=== PATIENT | female | born 1955 ===

== ENCOUNTER → 2017-04-03 | Outpatient (CLI) | payer OTHER | LOC: FIMAGING 16:30 | PROVIDERS: ATTEND Internal Medicine | DX: R10.13 Epigastric pain (principal) ==

== ENCOUNTER → 2018-01-07 | Outpatient (CLI) | payer OTHER | LOC: FIMAGING 10:27 | PROVIDERS: ATTEND Internal Medicine | DX: K11.9 Disease of salivary gland, unspecified (principal) ==

== ENCOUNTER → 2018-05-07 | Outpatient (CLI) | payer OTHER | LOC: FIMAGING 10:17 | PROVIDERS: ATTEND Internal Medicine | DX: R92.8 Other abnormal and inconclusive findings on diagnostic imaging of breast (principal) ==

== ENCOUNTER 2018-08-10 10:28 | Inpatient (IN) | payer OTHER ==
[2018-08-10] MEDS ORDERED: fentaNYL 100 MCG/2 ML INJ IVP ONE (11:03)
[2018-08-10] MEDS ORDERED: ONDANSETRON 4 MG/2 ML VIAL IVP ONE ×2 (11:03→12:37)
[2018-08-10] MEDS ORDERED: NS 1,000 ML IV ONE ×2 (11:03→12:37)
--- NOTE | 2018-08-10 11:04 | EDPHY ---
General - History Smoking Status: Never smoked Time Seen by Provider: 08/10/18 10:45 Narrative: CHIEF COMPLAINT: Abdominal pain, blood in stool HISTORY OF PRESENT ILLNESS: Patient presents by private vehicle with complaints of abdominal pain and blood in her stool. She says she has had intermittent bouts of abdominal pain over the past several months, and possibly up to a year. She has been evaluated by primary care physician with a CT scan that did not reveal an etiology other than ovarian cyst. She says since she has had increasing lower abdominal pain with blood in her stools several times daily. She knows that is bright red blood only with bowel movements. The pain is in lower abdomen and radiates through to the back. It is described as a pressure-like pain. Constant duration. Worse with palpation and walking. Minimal improvement rest. She has no nausea or vomiting. She does occasionally have some epigastric discomfort and cramping of the stomach. She has no fever chills. No bleeding from any other site. 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 She has no lightheaded or dizziness. No syncope. No other associated complaints or modifying factors. REVIEW OF SYSTEMS: 10 systems were reviewed and negative with the exception of the elements mentioned in the history of present illness. PCP: Dr. Angelica Chino SPECIALISTS: Payroll Officer, Pbx Repairer, [facility] PAST MEDICAL HISTORY: PE, ovarian cysts, dysfunctional uterine bleeding PAST SURGICAL HISTORY: Uterine ablation, Oxford filter, bilateral TKA SOCIAL HISTORY: Never smoker. Lives independently with her spouse. FAMILY HISTORY: Noncontributory EXAMINATION: Vitals: Triage VS reviewed General Appearance: Alert, no distress. Well appearing. Head: normocephalic, atraumatic Eyes: Pupils equal and round, no conjunctival pallor or injection ENT, Mouth: Mucous membranes moist. No bleeding from the gums. Airway patent. Neck: Normal inspection, supple, non-tender Respiratory: Lungs are clear to auscultation Cardiovascular: Regular rate and rhythm. No murmur. Good signs of perfusion distally Gastrointestinal: Abdomen is soft and nondistended. There is tenderness in the lower abdomen symmetrically. No guarding. No tympany rigidity. Bowel sounds present. No CVA tenderness. Back: non-tender, no bony abnormalities Neurological: A&O, nonfocal, normal gait Skin: Warm and dry, no rash no petechiae or purpura. Extremities: Nontender, no pedal edema Psychiatric: Mood and affect normal DIFFERENTIAL DIAGNOSES: Including but not limited to diverticulosis, diverticulitis, ovarian cyst, ovarian torsion, hemorrhagic ovarian cyst MDM: 11:00 a.m. Lower abdominal pain since with bright red blood in her stools. Her abdominal exam does reveal moderate tenderness in the lower abdomen without point tenderness at anyone location. There is no CVA tenderness. No guarding. No tympany rigidity. Do feel she warrants imaging given her location of pain and duration of symptoms. Laboratory studies are pending. IV has been established. I have ordered pain medication and IV fluid. She is in no acute distress. She does not meet SIRS criteria. 11:06 a.m. Point of care creatinine is 0.6, and I have notified tool rental technician. 12:00 p.m. Laboratory studies reveal appropriate INR and CBC is pending. Notified by radiologist. CT scan reveals no acute abnormality. There are incidental findings as documented. No evidence of ovarian cyst or any free fluid in the pelvis. Possible clavicle thickening of the lower esophagus. 12:15 p.m. Case discussed with Dr. Ambrosio, and he will evaluate the patient. 12:30 p.m. Patient re-evaluated after attending examination. She still feeling nauseated and has some mild lower abdominal pain. We discussed the CT scan does not explain her symptoms and that she is at risk for further bleeding on Coumadin. I do feel she warrants admission given her ongoing symptoms and GI bleed on Coumadin. Both the patient's spouse are comfortable this plan. 12:35 p.m. Notified by RN. The patient seems to have had a possible vagal episode with heart rate down to the 40s that quickly improved resolved, but she was symptomatic for this. We will obtain an EKG and administer IV fluids. She will be placed on a cardiac monitor technician. 12:40 p.m. EKG obtained reveals sinus bradycardia she remains on a cardiac monitor technician. 1:00 p.m. Case discussed with hospitalist SUPERVISION: Patient was evaluated and examined in conjunction with my secondary supervising physician as documented. We have both examined the patient. CONSULTATION: Hospitalist admission (Matt Bryan) Medical Decision Making: PHYSICIAN DOCUMENTATION: The patient was evaluated and managed by the Physician System Designer and myself. I have reviewed the chart and agree with the findings and plan of care as documented. In addition, I examined the patient myself at 1215. History confirmed as abdominal pain mostly lower now, had some rectal bleeding later last week which has improved but isn't totally gone. Physical findings as follows: Lower abdominal tenderness to palpation right greater than left. 12-lead EKG interpreted by me; official reading is in computer system. My interpretation is sinus bradycardia rate 43. Admission for continued abdominal pain with nausea, symptoms of lower GI bleeding. I am the secondary supervising physician. (Freddie Ambrosio) - Diagnostics Imaging Results: Imaging Impressions Abdomen CT 08/10/18 11:03 Impression: 1. No evidence of abdominopelvic inflammatory mass or ascites. 2. Equivocal thickening of a nondilated distal esophagus without definite mass visualized. This is nonspecific and may represent an inflammatory condition such as reflux, clinical correlation is recommended. 3. Incidental nonobstructing left nephrolithiasis. 4. Incidental right lower lobe pulmonary nodule, no prior studies available for comparison. In a low-risk patient according to Fleischner criteria no routine follow-up is recommended. 5. Incomplete characterization of incidental right lobe hepatic lesion. Recommend outpatient follow-up with three-phase CT or MRI with hepatic lesion protocol. 6. Retrievable style IVC filter in place. If caval filtration no longer indicated, recommend referral to interventional radiology outpatient clinic to evaluate potential retrieval. 7. Fibroid uterus. These findings were discussed with Matt Bryan by telephone at 12:06 PM on . - Objective Vital Signs: Initial Vital Signs Temperature (C) 36.5 C 08/10/18 10:34 Heart Rate 71 08/10/18 10:34 Respiratory Rate 16 08/10/18 10:34 Blood Pressure 194/91 H 08/10/18 10:34 O2 Sat (%) 96 08/10/18 10:34 O2 Delivery Mode Room Air Allergies/Adverse Reactions: morphine Allergy (Verified 08/10/18 13:34) Vomiting/Hives Sulfa (Sulfonamide Antibiotics) Allergy (Verified 08/10/18 13:34) Unknown Home Medications: Medication Instructions Recorded Cyanocobalamin [Vitamin B12 (*)] 1,000 mcg PO DAILY 08/10/18 Furosemide [Lasix 20 MG (*)] 20 mg PO DAILY PRN 08/10/18 Herbals/Supplements -Info Only 1 ea PO DAILY 08/10/18 Multivitamins [Multivitamin (*)] 1 each PO DAILY 08/10/18 Pyridoxine HCl [Vitamin B-6 100 mg 100 mg PO DAILY 08/10/18 (*)] Warfarin Sodium [Coumadin 5MG (*)] 5 mg PO MOTH@21 08/10/18 Warfarin Sodium [Coumadin 5MG (*)] 10 mg PO SUTUWEFRSA@21 08/10/18 Laboratory Results: Laboratory Results 08/10/18 12:35 08/10/18 10:45 08/10/18 08/10/18 08/10/18 12:35 12:35 10:55 WBC 6.28 10^3/uL 10^3/uL (3.80-9.50) RBC 5.08 10^6/uL 10^6/uL (4.18-5.33) Hgb 12.3 g/dL L g/dL (12.6-16.3) POC Hgb 15.0 gm/dL gm/dL (12.6-16.3) Hct 39.2 % % (38.0-47.0) POC Hct 44 % % (38-47) MCV 77.2 fL L fL (81.5-99.8) MCH 24.2 pg L pg (27.9-34.1) MCHC 31.4 g/dL L g/dL (32.4-36.7) RDW 15.2 % % (11.5-15.2) Plt Count 189 10^3/uL 10^3/uL (150-400) MPV 9.7 fL fL (8.7-11.7) Neut % (Auto) 70.4 % % (39.3-74.2) Lymph % (Auto) 17.5 % % (15.0-45.0) [place] % (Auto) 6.8 % % (4.5-13.0) Eos % (Auto) 2.1 % % (0.6-7.6) Baso % (Auto) 1.4 % % (0.3-1.7) Nucleat RBC Rel Count 0.0 % % (0.0-0.2) Absolute Neuts (auto) 4.42 10^3/uL 10^3/uL (1.70-6.50) Absolute Lymphs (auto) 1.10 10^3/uL 10^3/uL (1.00-3.00) Absolute Monos (auto) 0.43 10^3/uL 10^3/uL (0.30-0.80) Absolute Eos (auto) 0.13 10^3/uL 10^3/uL (0.03-0.40) Absolute Basos (auto) 0.09 10^3/uL 10^3/uL (0.02-0.10) Absolute Nucleated RBC 0.00 10^3/uL 10^3/uL (0-0.01) Immature Gran % 1.8 % H % (0.0-1.1) Seg Neutrophils % Cancelled Band Neutrophils % Cancelled Lymphocytes % Cancelled Monocytes % Cancelled Eosinophils % Cancelled Basophils % Cancelled Metamyelocytes % Cancelled Myelocytes % Cancelled Promyelocytes % Cancelled Blast Cells % Cancelled Megakaryocytes % Cancelled Immature Gran # 0.11 10^3/uL H 10^3/uL (0.00-0.10) Absolute Seg Neuts Cancelled Absolute Band Neuts Cancelled Absolute Lymphocytes Cancelled Absolute Monocytes Cancelled Absolute Eosinophils Cancelled Absolute Basophils Cancelled Absolute Metamyelocyte Cancelled Absolute Myelocytes Cancelled Absolute Promyelocytes Cancelled Absolute Plasma Cells Cancelled Nucleated RBCs Cancelled Differential Comment Cancelled RBC/WBC/PLT Morphology Cancelled Hypersegmented Neuts Cancelled Atypical Lymphocytes Cancelled Absolute Blast Cells Cancelled Plasma Cells % Cancelled Smudge Cells Cancelled Toxic Granulation Cancelled Toxic Vacuolation Cancelled Dohle Bodies Cancelled Cristino Rods Cancelled Platelet Estimate Cancelled Clumped Platelets Cancelled Large Platelets Cancelled Giant Platelets Cancelled Bizarre Platelets Cancelled Polychromasia Cancelled Hypochromasia Cancelled Basophilic Stippling Cancelled Microcytic Cells Cancelled Spherocytes Cancelled Pappenheimer Bodies Cancelled Sickle Cells Cancelled Target Cells Cancelled Tear Drop Cells Cancelled Oval Macrocytes Cancelled Stomatocytes Cancelled Martins-Maunie Bodies Cancelled Echinocytes Cancelled Elliptocytes Cancelled Acanthocytes (Spur) Cancelled Rouleaux Cancelled Keratocytes Cancelled Schistocytes Cancelled PT INR APTT POC Sodium 142 mEq/L mEq/L (135-145) Sodium POC Potassium 3.6 mEq/L mEq/L (3.3-5.0) Potassium POC Chloride 106 mEq/L mEq/L (97-110) Chloride Carbon Dioxide Anion Gap POC BUN 12 mg/dL mg/dL (7-23) BUN Creatinine POC Creatinine 0.6 mg/dL mg/dL (0.6-1.0) Estimated GFR Glucose POC Glucose 107 mg/dL H mg/dL (70-100) Calcium Total Bilirubin Conjugated Bilirubin Unconjugated Bilirubin AST ALT Alkaline Phosphatase Troponin I Total Protein Albumin Lipase Urine Color PALE YELLOW Urine Appearance CLEAR Urine pH 7.0 (5.0-7.5) Ur Specific [place] 1.029 (1.002-1.030) Urine Protein NEGATIVE (NEGATIVE) Urine Ketones NEGATIVE (NEGATIVE) Urine Blood NEGATIVE (NEGATIVE) Urine Nitrate NEGATIVE (NEGATIVE) Urine Bilirubin NEGATIVE (NEGATIVE) Urine Urobilinogen NEGATIVE EU EU (0.2-1.0) Ur Leukocyte Esterase NEGATIVE (NEGATIVE) Urine RBC 1-3 /hpf /hpf (0-3) Urine WBC 1-3 /hpf /hpf (0-3) Ur Epithelial Cells TRACE /lpf /lpf (NONE-1+) Urine Glucose NEGATIVE (NEGATIVE) Cold Agglutinins Cancelled 08/10/18 08/10/18 08/10/18 10:49 10:45 10:45 WBC RBC Hgb POC Hgb Hct POC Hct MCV MCH MCHC RDW Plt Count MPV Neut % (Auto) Lymph % (Auto) [place] % (Auto) Eos % (Auto) Baso % (Auto) Nucleat RBC Rel Count Absolute Neuts (auto) Absolute Lymphs (auto) Absolute Monos (auto) Absolute Eos (auto) Absolute Basos (auto) Absolute Nucleated RBC Immature Gran % Seg Neutrophils % Band Neutrophils % Lymphocytes % Monocytes % Eosinophils % Basophils % Metamyelocytes % Myelocytes % Promyelocytes % Blast Cells % Megakaryocytes % Immature Gran # Absolute Seg Neuts Absolute Band Neuts Absolute Lymphocytes Absolute Monocytes Absolute Eosinophils Absolute Basophils Absolute Metamyelocyte Absolute Myelocytes Absolute Promyelocytes Absolute Plasma Cells Nucleated RBCs Differential Comment RBC/WBC/PLT Morphology Hypersegmented Neuts Atypical Lymphocytes Absolute Blast Cells Plasma Cells % Smudge Cells Toxic Granulation Toxic Vacuolation Dohle Bodies Cristino Rods Platelet Estimate Clumped Platelets Large Platelets Giant Platelets Bizarre Platelets Polychromasia Hypochromasia Basophilic Stippling Microcytic Cells Spherocytes Pappenheimer Bodies Sickle Cells Target Cells Tear Drop Cells Oval Macrocytes Stomatocytes Martins-Maunie Bodies Echinocytes Elliptocytes Acanthocytes (Spur) Rouleaux Keratocytes Schistocytes PT 30.2 SEC H SEC (12.0-15.0) INR 2.90 H (0.83-1.16) APTT 62.4 SEC H SEC (23.0-38.0) POC Sodium Sodium 142 mEq/L mEq/L (135-145) POC Potassium Potassium 4.0 mEq/L mEq/L (3.3-5.0) POC Chloride Chloride 109 mEq/L mEq/L (97-110) Carbon Dioxide 22 mEq/l mEq/l (22-31) Anion Gap 11 mEq/L mEq/L (6-14) POC BUN BUN 13 mg/dL mg/dL (7-23) Creatinine 0.7 mg/dL mg/dL (0.6-1.0) POC Creatinine Estimated GFR > 60 Glucose 106 mg/dL H mg/dL (70-100) POC Glucose Calcium 9.5 mg/dL mg/dL (8.5-10.4) Total Bilirubin 0.7 mg/dL mg/dL (0.1-1.4) Conjugated Bilirubin 0.5 mg/dL mg/dL (0.0-0.5) Unconjugated Bilirubin 0.2 mg/dL mg/dL (0.0-1.1) AST 67 IU/L H IU/L (14-46) ALT 37 IU/L IU/L (9-52) Alkaline Phosphatase 166 IU/L H IU/L (38-126) Troponin I < 0.012 ng/mL ng/mL (0.000-0.034) Total Protein 7.9 g/dL g/dL (6.3-8.2) Albumin 4.7 g/dL g/dL (3.5-5.0) Lipase 283 IU/L IU/L (23-300) Urine Color Urine Appearance Urine pH Ur Specific [place] Urine Protein Urine Ketones Urine Blood Urine Nitrate Urine Bilirubin Urine Urobilinogen Ur Leukocyte Esterase Urine RBC Urine WBC Ur Epithelial Cells Urine Glucose Cold Agglutinins 08/10/18 10:45 WBC REJ RBC REJ Hgb REJ POC Hgb Hct REJ POC Hct MCV REJ MCH REJ MCHC REJ RDW REJ Plt Count REJ MPV REJ Neut % (Auto) REJ Lymph % (Auto) REJ [place]lan % (Auto) REJ Eos % (Auto) REJ Baso % (Auto) REJ Nucleat RBC Rel Count REJ Absolute Neuts (auto) REJ Absolute Lymphs (auto) REJ Absolute Monos (auto) REJ Absolute Eos (auto) REJ Absolute Basos (auto) REJ Absolute Nucleated RBC REJ Immature Gran % REJ Seg Neutrophils % Band Neutrophils % Lymphocytes % Monocytes % Eosinophils % Basophils % Metamyelocytes % Myelocytes % Promyelocytes % Blast Cells % Megakaryocytes % Immature Gran # REJ Absolute Seg Neuts Absolute Band Neuts Absolute Lymphocytes Absolute Monocytes Absolute Eosinophils Absolute Basophils Absolute Metamyelocyte Absolute Myelocytes Absolute Promyelocytes Absolute Plasma Cells Nucleated RBCs Differential Comment RBC/WBC/PLT Morphology Hypersegmented Neuts Atypical Lymphocytes Absolute Blast Cells Plasma Cells % Smudge Cells Toxic Granulation Toxic Vacuolation Dohle Bodies Cristino Rods Platelet Estimate Clumped Platelets Large Platelets Giant Platelets Bizarre Platelets Polychromasia Hypochromasia Basophilic Stippling Microcytic Cells Spherocytes Pappenheimer Bodies Sickle Cells Target Cells Tear Drop Cells Oval Macrocytes Stomatocytes Martins-Maunie Bodies Echinocytes Elliptocytes Acanthocytes (Spur) Rouleaux Keratocytes Schistocytes PT INR APTT POC Sodium Sodium POC Potassium Potassium POC Chloride Chloride Carbon Dioxide Anion Gap POC BUN BUN Creatinine POC Creatinine Estimated GFR Glucose POC Glucose Calcium Total Bilirubin Conjugated Bilirubin Unconjugated Bilirubin AST ALT Alkaline Phosphatase Troponin I Total Protein Albumin Lipase Urine Color Urine Appearance Urine pH Ur Specific [place] Urine Protein Urine Ketones Urine Blood Urine Nitrate Urine Bilirubin Urine Urobilinogen Ur Leukocyte Esterase Urine RBC Urine WBC Ur Epithelial Cells Urine Glucose Cold Agglutinins Medications Given: Discontinued Medications Fentanyl (Sublimaze) 100 mcg IVP EDNOW ONE Stop: 08/10/18 11:04 Last Admin: 08/10/18 11:17 Dose: 100 mcg Sodium Chloride (Ns) 1,000 mls @ 0 mls/hr IV EDNOW ONE; Wide Open PRN Reason: Protocol Stop: 08/10/18 11:04 Last Admin: 08/10/18 11:18 Dose: 1,000 mls Sodium Chloride (Ns) 1,000 mls @ 0 mls/hr IV EDNOW ONE; Wide Open PRN Reason: Protocol Stop: 08/10/18 12:38 Last Admin: 08/10/18 12:41 Dose: 1,000 mls Ondansetron HCl (Zofran) 4 mg IVP EDNOW ONE Stop: 08/10/18 11:04 Last Admin: 08/10/18 11:17 Dose: 4 mg Ondansetron HCl (Zofran) 4 mg IVP EDNOW ONE Stop: 08/10/18 12:38 Last Admin: 08/10/18 15:01 Dose: Not Given Point of Care Test Results: Chemistry 08/10/18 10:55 POC Sodium 142 mEq/L mEq/L (135-145) POC Potassium 3.6 mEq/L mEq/L (3.3-5.0) POC Chloride 106 mEq/L mEq/L (97-110) POC BUN 12 mg/dL mg/dL (7-23) POC Creatinine 0.6 mg/dL mg/dL (0.6-1.0) POC Glucose 107 mg/dL H mg/dL (70-100) ISTAT H&H 08/10/18 10:55 POC Hgb 15.0 gm/dL gm/dL (12.6-16.3) POC Hct 44 % % (38-47) Departure - Departure Disposition: [facility] Inpatient Acute Clinical Impression: Bradycardia, Lower GI bleed Abdominal pain Qualifiers: Abdominal location: lower abdomen, unspecified Qualified Code(s): R10.30 - Lower abdominal pain, unspecified Condition: Good
[2018-08-10 11:24] LABS: INR 2.9 (0.83-1.16); PROTIME(PATIENT) 30.2 SEC (12.0-15.0)
--- NOTE | 2018-08-10 13:11 | CPEKG ---
Test Reason : OPEN Blood Pressure : / mmHG Vent. Rate : 043 BPM Atrial Rate : 042 BPM P-R Int : 184 ms QRS Dur : 107 ms QT Int : 518 ms P-R-T Axes : 052 -23 013 degrees QTc Int : 439 ms Sinus bradycardia Left ventricular hypertrophy Confirmed by Freddie Ambrosio ([id number]) on 08/10/2018 1:11:31 PM Referred By: Confirmed By:Freddie Ambrosio
[2018-08-10] MEDS ORDERED: HYDROmorphONE/DILAUDID 1 MG/ML INJ IVP PRN (13:56)
[2018-08-10] MEDS ORDERED: HYDROCODONE/APAP 5/325 TAB PO PRN (13:56)
[2018-08-10] MEDS ORDERED: ONDANSETRON DISINTEGRATING 4 MG TAB PO PRN (13:56)
[2018-08-10] MEDS ORDERED: ONDANSETRON 4 MG/2 ML VIAL IVP PRN (13:56)
--- NOTE | 2018-08-10 14:06 | PDGENHP ---
History and Physical - History of Present Illness History Information - Allergies/Home Medication List Allergies/Adverse Reactions: morphine Allergy (Verified 08/10/18 13:34) Vomiting/Hives Sulfa (Sulfonamide Antibiotics) Allergy (Verified 08/10/18 13:34) Unknown Home Medications: Cyanocobalamin [Vitamin B12 (*)] 1,000 mcg PO DAILY 08/10/18 [Last Taken Unknown ] Furosemide [Lasix 20 MG (*)] 20 mg PO DAILY PRN 08/10/18 [Last Taken 08/10/18] Herbals/Supplements -Info Only 1 ea PO DAILY 08/10/18 [Last Taken Unknown] Multivitamins [Multivitamin (*)] 1 each PO DAILY 08/10/18 [Last Taken Unknown] Pyridoxine HCl [Vitamin B-6 100 mg (*)] 100 mg PO DAILY 08/10/18 [Last Taken Unknown] Warfarin Sodium [Coumadin 5MG (*)] 5 mg PO MOTH@08/10/18 [Last Taken 08/06/18 ] Warfarin Sodium [Coumadin 5MG (*)] 10 mg PO SUTUWEFRSA@08/10/18 [Last Taken 08/09/18] I have personally reviewed and updated: family history, medical history, social history, surgical history - Past Medical History Additional medical history: H pylori. h/o b/l PE. abnormal uterine bleeding - s/p ablation. ovarian cysts - Surgical History Additional surgical history: b/l TKA. uterine ablation - Family History Positive for: non-pertinent - Social History Smoking Status: Never smoked Additional social history: , lives independently Review of Systems Review of Systems: ROS: 10pt was reviewed & negative except for what was stated in HPI & below Physical Exam Physical Exam: Temp Pulse Resp BP Pulse Ox 36.5 C 46 L 16 160/50 H 94 08/10/18 10:34 08/10/18 12:34 08/10/18 12:34 08/10/18 12:34 08/10/18 12:34 Constitutional: no apparent distress Eyes: PERRL Ears, Nose, Mouth, Throat: moist mucous membranes Cardiovascular: regular rate and rhythym Respiratory: no respiratory distress, clear to auscultation Gastrointestinal: normoactive bowel sounds, other (soft, minimal distention, mild diffuse ttp, no r/r/g or peritoneal signs) Skin: warm Musculoskeletal: full muscle strength Neurologic: AAOx3 Psychiatric: interacting appropriately Lab Data & Imaging Review 08/10/18 12:35 08/10/18 10:45 WBC REJ 08/10/18 10:45 RBC REJ 08/10/18 10:45 Hgb REJ 08/10/18 10:45 POC Hgb 15.0 gm/dL (12.6-16.3) 08/10/18 10:55 Hct REJ 08/10/18 10:45 POC Hct 44 % (38-47) 08/10/18 10:55 MCV REJ 08/10/18 10:45 MCH REJ 08/10/18 10:45 MCHC REJ 08/10/18 10:45 RDW REJ 08/10/18 10:45 Plt Count REJ 08/10/18 10:45 MPV REJ 08/10/18 10:45 Neut % (Auto) REJ 08/10/18 10:45 Lymph % (Auto) REJ 08/10/18 10:45 [place] % (Auto) REJ 08/10/18 10:45 Eos % (Auto) REJ 08/10/18 10:45 Baso % (Auto) REJ 08/10/18 10:45 Nucleat RBC Rel Count REJ 08/10/18 10:45 Absolute Neuts (auto) REJ 08/10/18 10:45 Absolute Lymphs (auto) REJ 08/10/18 10:45 Absolute Monos (auto) REJ 08/10/18 10:45 Absolute Eos (auto) REJ 08/10/18 10:45 Absolute Basos (auto) REJ 08/10/18 10:45 Absolute Nucleated RBC REJ 08/10/18 10:45 Immature Gran % REJ 08/10/18 10:45 Immature Gran # REJ 08/10/18 10:45 PT 30.2 SEC (12.0-15.0) H 08/10/18 10:49 INR 2.90 (0.83-1.16) H 08/10/18 10:49 APTT 62.4 SEC (23.0-38.0) H 08/10/18 10:49 POC Sodium 142 mEq/L (135-145) 08/10/18 10:55 Sodium 142 mEq/L (135-145) 08/10/18 10:45 POC Potassium 3.6 mEq/L (3.3-5.0) 08/10/18 10:55 Potassium 4.0 mEq/L (3.3-5.0) 08/10/18 10:45 POC Chloride 106 mEq/L (97-110) 08/10/18 10:55 Chloride 109 mEq/L (97-110) 08/10/18 10:45 Carbon Dioxide 22 mEq/l (22-31) 08/10/18 10:45 Anion Gap 11 mEq/L (6-14) 08/10/18 10:45 POC BUN 12 mg/dL (7-23) 08/10/18 10:55 BUN 13 mg/dL (7-23) 08/10/18 10:45 Creatinine 0.7 mg/dL (0.6-1.0) 08/10/18 10:45 POC Creatinine 0.6 mg/dL (0.6-1.0) 08/10/18 10:55 Estimated GFR > 60 08/10/18 10:45 Glucose 106 mg/dL (70-100) H 08/10/18 10:45 POC Glucose 107 mg/dL (70-100) H 08/10/18 10:55 Calcium 9.5 mg/dL (8.5-10.4) 08/10/18 10:45 Total Bilirubin 0.7 mg/dL (0.1-1.4) 08/10/18 10:45 Conjugated Bilirubin 0.5 mg/dL (0.0-0.5) 08/10/18 10:45 Unconjugated Bilirubin 0.2 mg/dL (0.0-1.1) 08/10/18 10:45 AST 67 IU/L (14-46) H 08/10/18 10:45 ALT 37 IU/L (9-52) 08/10/18 10:45 Alkaline Phosphatase 166 IU/L (38-126) H 08/10/18 10:45 POC Troponin I 0.01 ng/mL (0.00-0.08) 08/10/18 13:06 Troponin I < 0.012 ng/mL (0.000-0.034) 08/10/18 10:45 Total Protein 7.9 g/dL (6.3-8.2) 08/10/18 10:45 Albumin 4.7 g/dL (3.5-5.0) 08/10/18 10:45 Lipase 283 IU/L (23-300) 08/10/18 10:45 Urine Color PALE YELLOW 08/10/18 12:35 Urine Appearance CLEAR 08/10/18 12:35 Urine pH 7.0 (5.0-7.5) 08/10/18 12:35 Ur Specific [place] 1.029 (1.002-1.030) 08/10/18 12:35 Urine Protein NEGATIVE (NEGATIVE) 08/10/18 12:35 Urine Ketones NEGATIVE (NEGATIVE) 08/10/18 12:35 Urine Blood NEGATIVE (NEGATIVE) 08/10/18 12:35 Urine Nitrate NEGATIVE (NEGATIVE) 08/10/18 12:35 Urine Bilirubin NEGATIVE (NEGATIVE) 08/10/18 12:35 Urine Urobilinogen NEGATIVE EU (0.2-1.0) 08/10/18 12:35 Ur Leukocyte Esterase NEGATIVE (NEGATIVE) 08/10/18 12:35 Urine RBC 1-3 /hpf (0-3) 08/10/18 12:35 Urine WBC 1-3 /hpf (0-3) 08/10/18 12:35 Ur Epithelial Cells TRACE /lpf (NONE-1+) 08/10/18 12:35 Urine Glucose NEGATIVE (NEGATIVE) 08/10/18 12:35 Assessment & Plan Assessment: Abdominal pain with bloody stool - Consider infectious etiology with pain and loose, bloody stools. Note h/o h pylori. Hemodynamically stable, no e/o active bleeding. -send GI pathogen panel -trend h&h -IV PPI -clear liquids for now -GI consulted, Dr. Mckeon to see pt -defer INR reversal at this time. If GI path panel neg and has ongoing bleeding, will reverse INR. Could give FFP if needs emergent reversal overnight. H/O PE - on coumadin, INR 2.9 on arrival. Note presence of IVC filter -hold coumadin for now, but as above, defer INR reversal unless more active bleeding or neg GI PCR and scope becomes indicated Bradycardia - Suspect vagal event in ED, now resolved. No AV varun agents -monitor on telemetry Full code Dispo - obs
[2018-08-10 14:14] LABS: PLATELET COUNT 189 10^3/uL (150-400)
[2018-08-10] MEDS ORDERED: NS W/ 20 KCl/L 1,000 ML IV SCH (14:15)
[2018-08-10] MEDS: PANTOPRAZOLE SODIUM 40 MG VIAL IVP SCH ×2 (17:20→21:37)
[2018-08-10] MEDS: ACETAMINOPHEN 325 MG TAB PO PRN (21:34)
[2018-08-11 02:16] LABS: INR 3.39 (0.83-1.16)
[2018-08-11] MEDS ORDERED: PEG 3350/NA SULF,BICARB,CL/KCL (GAVILYTE-G) 4000 ML BTL PO ONE (09:07)
[2018-08-11] MEDS: PANTOPRAZOLE SODIUM 40 MG VIAL IVP SCH ×2 (09:56→22:45)
--- NOTE | 2018-08-11 11:27 | HOSPPROG ---
Hospitalist Progress Note Assessment/Plan: Abdominal pain with bloody stool - Consider infectious etiology with pain and loose, bloody stools. Note h/o h pylori. Hemodynamically stable, no e/o active bleeding. h&h stable overnight without recurrent bloody stools -send GI pathogen panel, not sent bc no more stools -EGD/c-scope today per GI recs H/O PE - on coumadin, INR 2.9 on arrival, now 3.39, likey rising due to little oral intake. Note presence of IVC filter, query need for ongoing anticoagulation. -holding coumadin for now, defer INR reversal, discussed with Dr. Mckeon Bradycardia - Suspect vagal event in ED, now resolved. No AV varun agents. Resolved. -monitor on telemetry Full code Dispo - change to inpt for ongoing GI evaluation Subjective: Pt doing better. No diarrhea or bloody stools since admission. No stools at all since admission. No N/V. No fevers/chills. Still has intermittent abdominal discomfort, which seems mostly epigastric. Objective: Vital Signs Temp Pulse Resp BP Pulse Ox 36.8 C 54 L 14 168/94 H 97 08/11/18 11:19 08/11/18 11:19 08/11/18 11:19 08/11/18 11:19 08/11/18 11:19 Laboratory Results 08/11/18 09:47 08/10/18 08/11/18 08/12/18 05:59 05:59 05:59 Intake Total 1780 Balance 1780 PT 34.0 SEC (12.0-15.0) H 08/11/18 02:00 INR 3.39 (0.83-1.16) H 08/11/18 02:00 - Physical Exam Constitutional: no apparent distress Eyes: PERRL Ears, Nose, Mouth, Throat: moist mucous membranes Cardiovascular: regular rate and rhythym Respiratory: no respiratory distress, clear to auscultation Gastrointestinal: normoactive bowel sounds, soft, non-tender abdomen Skin: warm Musculoskeletal: full muscle strength Neurologic: AAOx3 Psychiatric: interacting appropriately ICD10 Worksheet Patient Problems: Problems Problem Status Onset Abdominal pain Acute Bradycardia Acute Lower GI bleed Acute
[2018-08-11] MEDS: ACETAMINOPHEN 325 MG TAB PO PRN (12:01)
--- NOTE | 2018-08-11 14:02 | PDMN ---
Medical Necessity Medical necessity: Change to inpt as of 08/11/18 @ 11:29. Pt meets inpt criteria per MD order and MCG M-05, Abdominal Pain, Undiagnosed. 62 y/o admitted w/abdominal pain and bloody stool. Upgraded to inpt status for persistent abd pain, nausea, further workup needed, GI consult, EGD/c-scope today. Bradycardia ,HR 40's-50's. IVF, IV PPI, IV antiemetics, pain control. Anticipate>2MN for ongoing eval/management of above.
--- NOTE | 2018-08-11 14:49 | ASMTCMCOM ---
CM Note CM Note Notes: Pt is a 62 y/o female admitted for lower GI bleed, and bradycardia. Pt will most likely d/c independent when medically stable. No therapies ordered at this time. CM available for changes. Plan: Independent Date Signed: 08/11/2018 02:48 PM Electronically Signed By:HERMINIO Castillo
[2018-08-11] MEDS ORDERED: LR 1,000 ML IV ONE (16:09)
--- NOTE | 2018-08-11 17:07 | PDANEPAE ---
ANE History of Present Illness egd/colon ANE Past Medical History - Cardiovascular History Hx Hypertension: No Hx Arrhythmias: No Hx Chest Pain: No Hx Coronary Artery / Peripheral Vascular Disease: No Hx CHF / Valvular Disease: No Hx Palpitations: No Cardiovascular History Comment: linda filter in place - Pulmonary History Hx COPD: No Hx Asthma/Reactive Airway Disease: No Hx Recent Upper Respiratory Infection: No Hx Oxygen in Use at Home: No Hx Sleep Apnea: Yes Sleep Apnea Screening Result - Last Documented: Positive - Neurologic History Hx Cerebrovascular Accident: No Hx Seizures: No Hx Dementia: No - Endocrine History Hx Diabetes: No Hypothyroid: No Hyperthyroid: No Obesity: no - Renal History Hx Renal Disorders: No - Liver History Hx Hepatic Disorders: No - Chronic Pain History Chronic Pain: No ANE Review of Systems Review of Systems: - Exercise capacity Exercise capacity: >=4 METS ANE Patient History - Allergies Allergies/Adverse Reactions: morphine Allergy (Verified 08/10/18 13:34) Vomiting/Hives Sulfa (Sulfonamide Antibiotics) Allergy (Verified 08/10/18 13:34) Unknown - Home Medications Home Medications: Cyanocobalamin [Vitamin B12 (*)] 1,000 mcg PO DAILY 08/10/18 [Last Taken Unknown ] Furosemide [Lasix 20 MG (*)] 20 mg PO DAILY PRN 08/10/18 [Last Taken 08/10/18] Herbals/Supplements -Info Only 1 ea PO DAILY 08/10/18 [Last Taken Unknown] Multivitamins [Multivitamin (*)] 1 each PO DAILY 08/10/18 [Last Taken Unknown] Pyridoxine HCl [Vitamin B-6 100 mg (*)] 100 mg PO DAILY 08/10/18 [Last Taken Unknown] Warfarin Sodium [Coumadin 5MG (*)] 5 mg PO MOTH@21 08/10/18 [Last Taken 08/06/18 ] Warfarin Sodium [Coumadin 5MG (*)] 10 mg PO SUTUWEFRSA@08/10/18 [Last Taken 08/09/18] - NPO status NPO Since - Liquids (Date): 08/11/18 NPO Since - Liquids (Time): 14:00 NPO Since - Solids (Date): 08/09/18 NPO Since - Solids (Time): 20:00 - Smoking Hx Smoking Status: Never smoked ANE Labs/Vital Signs - Labs Result Diagrams: 08/11/18 09:47 08/10/18 10:45 - Vital Signs Blood Pressure: 172/81 Heart Rate: 47 Respiratory Rate: 19 O2 Sat (%): 94 Height: 172.72 cm Weight: 84.822 kg ANE Physical Exam - Airway Mallampati Score: Class 2 Mouth exam: normal dental/mouth exam - Pulmonary Pulmonary: no respiratory distress - Cardiovascular Cardiovascular: regular rate and rhythym - ASA Status ASA Status: II ANE Anesthesia Plan Anesthesia Plan: GA with mask, MAC
[2018-08-11] MEDS ORDERED: MIDAZOLAM 2 MG/2 ML VIAL ONE (17:09)
[2018-08-11] MEDS ORDERED: fentaNYL 100 MCG/2 ML INJ ONE (17:09)
[2018-08-11] MEDS ORDERED: LIDOCAINE 2% 5 ML SDV ONE (17:09)
[2018-08-11] MEDS ORDERED: PROPOFOL/EMULSION 500 MG/50 ML BOTTLE IV ONE (17:09)
[2018-08-11] MEDS ORDERED: LR 500 ML IV PRN (17:17)
[2018-08-11] MEDS ORDERED: fentaNYL 100 MCG/2 ML INJ IVP PRN (17:17)
[2018-08-11] MEDS ORDERED: ONDANSETRON 4 MG/2 ML VIAL IVP PRN (17:17)
[2018-08-11] MEDS ORDERED: ALBUTEROL 3 ML DEYVIAL IH PRN (17:17)
[2018-08-11] MEDS ORDERED: NALOXONE HCL 0.4 MG/ML INJ IVP PRN (17:17)
--- NOTE | 2018-08-11 17:37 | GIREPORT ---
[facility] Surgical Services - Endoscopy Department Patient Name: Sara Foote Procedure Date: 08/11/2018 5:00 PM Patient Type: Inpatient Attending MD/ ER Physician: Elio Mckeon MD Procedure: Upper GI endoscopy Indications: Epigastric abdominal pain, Hematochezia, Diarrhea, Nausea Providers: Elio Mckeon MD Medicines: General Anesthesia Complications: No immediate complications. Description of Procedure: After obtaining informed consent, the endoscope was passed under direct vision. Throughout the procedure, the patient's blood pressure, pulse, and oxygen saturations were monitored continuously. The Endoscope was intro duced through the mouth, and advanced to the second part of duodenum. The [facility] er GI endoscopy was accomplished without difficulty. The patient tolerated th e procedure well. Findings: The examined esophagus was normal. The entire examined stomach was normal. The examined duodenum was normal. Estimated Blood Loss: Estimated blood loss: none. Post Op Diagnosis: - Normal esophagus. - Normal stomach. - Normal examined duodenum. - No specimens collected. Recommendation: - Perform a colonoscopy today. Attending Participation: I personally performed the entire procedure. Elio Mckeon MD Elio Mckeon MD 08/11/2018 5:37:08 PM This report has been signed electronicallyJohalley Mckeon MD Number of Addenda: 0 Note Initiated On: 08/11/2018 5:00 PM [email or web address]
--- NOTE | 2018-08-11 18:01 | GIREPORT ---
Replaced By [facility] Surgical Services - Endoscopy Department Patient Name: Sara Foote Procedure Date: 08/11/2018 5:03 PM Patient Type: Inpatient Attending MD/ ER Physician: Elio Mckeon MD Procedure: Colonoscopy Indications: Generalized abdominal pain, Clinically significant diarrhea of [place] origin, Hematochezia Providers: Elio Mckeon MD Medicines: General Anesthesia Complications: No immediate complications. Description of Procedure: After obtaining informed consent, the scope was passed under direct vis ion. Throughout the procedure, the patient's blood pressure, pulse, and oxyg en saturations were monitored continuously. The Loaner scope was introduce d through the anus and advanced to the terminal ileum. The colonoscopy wa s performed without difficulty. The patient tolerated the procedure well. The quality of the bowel preparation was excellent. Findings: The terminal ileum appeared normal. The colon (entire examined portion) appeared normal. Non-bleeding internal hemorrhoids were found during retroflexion. The hemorrhoids were Grade II (internal hemorrhoids that prolapse but reduc e spontaneously). The perianal and digital rectal examinations were normal. Estimated Blood Loss: Estimated blood loss: none. Post Op Diagnosis: - The examined portion of the ileum was normal. - The entire examined colon is normal. - Non-bleeding internal hemorrhoids. - No specimens collected. Recommendation: - Return patient to [facility] for ongoing care. - Resume regular diet today. - Repeat colonoscopy in 10 years for screening purposes. - The findings and recommendations were discussed with the patient. Attending Participation: I personally performed the entire procedure. Elio Mckeon MD Elio Mckeon MD 08/11/2018 6:01:03 PM This report has been signed electronicallyElio Mckeon MD Number of Addenda: 0 Note Initiated On: 08/11/2018 5:03 PM Total Procedure Duration Time 0 hours 19 minutes 14 seconds [email or web address]
--- NOTE | 2018-08-11 18:04 | POSTANESTH ---
Post Anesthetic Evaluation Cardiovascular Status: Normal, Stable Respiratory Status: Normal, Stable Level of Consciousness/Mental Status: Can Participate in Eval Pain Control: Adequate, Prn Tx Ordered Nausea/Vomiting Control: Adequate, Prn Tx Ordered Complications Possibly Related to Anesthesia: None Noted
--- NOTE | 2018-08-11 20:12 | GCON ---
REFERRING PHYSICIAN: Lili Corcoran MD REASON FOR CONSULTATION: Abdominal pain, and bloody bowel movement. HISTORY OF PRESENT ILLNESS: The patient is a 62-year-old female, who is on chronic anticoagulation for history of pulmonary emboli, who presented to the emergency room yesterday with a 4-day history of generalized crampy abdominal pain with frequent loose bloody bowel movements. The symptoms started the evening of , and worsened over the last 4 days, she was having 3 to 4 loose bloody bowel movements over the weekend. She denied any fever, or chills. She did have some mild nausea, though no vomiting. She does have a history of chronic irregular bowel function, and abdominal pain. She did have an EGD, and total colonoscopy 2 years ago, which she reported as normal. She denies any unusual food consumption, or recent travel. She denies any weight loss. MEDICATIONS: Prior to admission included: 1. Vitamin B12 1000 mcg p.o. daily. 2. Furosemide 20 mg p.o. p.r.n. pedal edema. 3. Vitamin B6 100 mg p.o. daily. 4. Warfarin 5 mg alternating with 10 mg daily. 5. Multivitamin daily. 6. Herbal supplements daily. ALLERGIES: Morphine and sulfa. PAST MEDICAL HISTORY: Is significant for: 1. Pulmonary emboli. 2. Dysfunctional uterine bleeding. 3. Chronic abdominal discomfort off and on over the last several years. PAST SURGICAL HISTORY: 1. Significant for Blu filter placed. 2. Bilateral total knee replacement. FAMILY HISTORY: Negative for GI malignancies, or peptic ulcer disease, or inflammatory bowel disease. SOCIAL HISTORY: She is . Her and her live in the area. Her works at [employer]. She does not drink significant quantities of alcohol, or smoke tobacco. REVIEW OF SYSTEMS: Negative for comprehensive review of systems other than as noted above in the HPI. EXAMINATION: VITAL SIGNS: Temperature 36.8 Celsius, pulse 48 regular, blood pressure 149/85, respiratory rate 12, O2 saturation 95% on room air. GENERAL: A well-developed, well-nourished female in no apparent distress. INTEGUMENT: Clear. HEENT: Head atraumatic, normocephalic. Pupils equal, round, reactive to light. EOMs intact. Sclerae nonicteric. Nares patent. Mucous membranes moist. Dentition good. NECK: Supple. Trachea midline. LYMPHATICS: No cervical or axillary adenopathy palpated. PULMONARY: Lungs are clear to percussion and auscultation. CARDIOVASCULAR: Regular rhythm and rate. Normal S1, S2 without murmur. Peripheral pulses strong bilaterally. No pedal edema. GASTROINTESTINAL: Abdomen supple. Positive bowel sounds. There is mild tenderness in the epigastrium to deep palpation without palpable mass, or rebound. No liver edge, or spleen tip palpable. No fluid wave noted, or shifting dullness, or rebound tenderness. EXTREMITIES: Without deformity. NEURO: Patient was alert, and oriented x3. There are no focal neurologic deficits. LABS: White count 6.28, hemoglobin 11.9, hematocrit 37.8, platelets 189,000. ProTime 34.0, INR 3.39, PTT 62.4. Electrolytes normal. BUN 13, creatinine 0.7. LFTs showed an AST of 67, ALT of 37, alkaline phosphatase 166, total bilirubin 0.5, lipase 283. Urinalysis negative. IMPRESSION: Acute on chronic abdominal pain with nausea and recent diarrhea, and blood in stool (no bowel movement since admission). Rule out peptic ulcer disease, or colitis. RECOMMENDATION: Since no bowel movement obtained since admission to check for infectious pathogens, would proceed with a Colyte prep today, and total colonoscopy, and esophagogastroduodenoscopy later this afternoon. /[id number]/MODL MTDD
[2018-08-12 08:10] VITALS: BP 139/76
--- NOTE | 2018-08-12 10:49 | ASDISCHSUM ---
Discharge Information Plan Status:Home with No Needs Medically Cleared to Leave:08/11/2018 Discharge Date:08/12/2018 10:45 AM CM D/C Disposition:Home, Routine, Self-Care ADT D/C Disposition:Home, Routine, Self-Care Projected Discharge Date:08/12/2018 10:45 AM Transportation at D/C: Discharge Delay Reason: Follow-Up Date:08/12/2018 10:45 AM Discharge Slot: Final Diagnosis: Placement Information Patient Contact Information Contact Name:LOWJONATHONLORENE Relationship: Address:[address] [place] City:[place] Alternate Phone: State/Zip Code:[place] [address] Email: Financial Information Financial Class:[employer] Primary Plan Desc:[facility] Primary Plan Number:[id number] Secondary Plan Desc: Secondary Plan Number: Assessment Information LACE LACE Length of stay for Answers: Less than 1 day current admission Acuity / Level of Answers: No Care: Did the patient have an inpatient admission? Comorbidities - select Answers: Other Notes: Hx of PEs all that apply # of Emergency department Answers: 1-2 visits in the last 6 months Score: 2 Date Signed: 08/12/2018 10:47 AM Electronically Signed By:Sylwia Carrillo RN [facility] CM Progress Note CM Note CM Note Notes: Pt is a 62 y/o female admitted for lower GI bleed, and bradycardia. Pt will most likely d/c independent when medically stable. No therapies ordered at this time. CM available for changes. Plan: Independent Date Signed: 08/11/2018 02:48 PM Electronically Signed By:HERMINIO Castillo Intervention Information
[2018-08-12] MEDS: PANTOPRAZOLE SODIUM 40 MG VIAL IVP SCH (11:36)
--- NOTE | 2018-08-19 06:20 | GDS ---
DISCHARGE DIAGNOSES: 1. Abdominal pain, resolved. 2. Bloody diarrhea, resolved. 3. History of pulmonary embolism. 4. Chronic anticoagulation. 5. Bradycardia, resolved. 6. Incidental liver lesion. CONSULTANTS: Dr. Elio Mckeon, Gastroenterology. IMAGING STUDIES/PROCEDURES: 1. Colonoscopy, August 11, 2018, showed a completely normal colon throughout with nonbleeding inte rnal hemorrhoids. 2. Upper endoscopy August 11, 2018, showed normal esophagus, normal stomach and normal examined po rtion of the duodenum. HISTORY OF DETAILS: Please see history and physical dated August 10, 2018. In brief, the patient is a 62-year-old female with a history of pulmonary embolism on chronic anticoagulation who presented to the emergency department complaining of abdominal discomfort and bloody stools. She was admitted to the hospital for further management in her hospital course. The patient admitted to the cardiac telemetry unit after some concern about a bradycardic event in the emergency department. Her heart r ate has been maintained in the 40s and mostly 50s during hospitalization. She had no hypotension and no symptoms associated with this. She is not on any AV varun blockers. With respect to her abdomin al pain and bloody stools, her hemoglobin was trended and remained stable. She also remained hemodyn amically stable. She actually had no further diarrhea or bloody stools during the hospitalization. Given her ongoing symptoms, she underwent upper endoscopy and colonoscopy which were both entirely no rmal. A GI pathogen panel was also negative. It is unclear if she may have an irritable bowel syndr ome or had some type of food poisoning. I recommend she follow up with Gastroenterology if she has o ngoing symptoms. Her Coumadin was held for 2 days due to concern for bleeding and need for possible procedure. Howeve r, she did not receive any reversal agents as she had no active bleeding and per Gastroenterology, it was likely safe to undergo upper and lower endoscopy without reversal of her INR. I suspect her INR went up to 3.3 the day prior to discharge due to poor oral intake. It is recommended she have close followup on her INR in 1 to 2 days and she can continue her home Coumadin dose. That said, I recomm end she have ongoing discussions with primary care about the indication for ongoing anticoagulation. In addition, it is plausible that she may have her IVC filter removed if she is to stay on chronic a nticoagulation. These issues can be addressed by her outpatient primary care provider. DISPOSITION: Patient is discharged home in stable condition. DISPOSITION: The patient is discharged home in stable condition. FOLLOWUP: 1. Dr. Angelica Chino, Primary Care. 2. Dr. Elio Mckeon, Gastroenterology. 3. Followup imaging of the incidental lesion seen on the liver. 4. I also recommend she follow up with Gynecology for her history of ovarian problems and have refer red her to Dr. Luann Lucas. DISCHARGE MEDICATIONS: Please see [facility] for completed outpatient medication list. New medications on discharge include Pepcid 20 mg p.o. b.i.d. p.r.n., #60, no refills. She will cont inue all other outpatient medications as previously prescribed. /[id number]/MODL
== END 2018-08-12 10:45 | disposition home or self-care (01) | DRG 392 ==
LOC: INTOOBSV 13:02 → F2W 16:01 → OBSVTOIN 08-11 11:29
PROVIDERS: ADMIT Hospitalist; ATTEND Hospitalist
DX: R10.30 Lower abdominal pain, unspecified (principal); K92.1 Melena; K64.1 Second degree hemorrhoids; D25.9 Leiomyoma of uterus, unspecified; R00.1 Bradycardia, unspecified; Z86.711 Personal history of pulmonary embolism; Z96.653 Presence of artificial knee joint, bilateral; Z79.01 Long term (current) use of anticoagulants
CPT/HCPCS: 82435-PO; 82565-PO; 82947-PO; 84132-PO; 84295-PO; 84484-PO; 84520-PO; 85014-PO; 96374; G0378; J2250; J2405; J2704; J3010

== ENCOUNTER → 2018-08-31 | Outpatient (CLI) | payer OTHER ==
[~2018-08-31] MED LIST: GADOBUTROL 10 ML VIAL IVP ONE
== END ==
LOC: FIMAGING 12:56
PROVIDERS: ATTEND Internal Medicine
DX: K76.9 Liver disease, unspecified (principal); D25.9 Leiomyoma of uterus, unspecified
CPT/HCPCS: A9585